=== PATIENT | male | born 1975 | race Caucasian/White ===

== ENCOUNTER → 2016-10-17 | Outpatient (CLI) | payer OTHER ==
[~2016-10-17] MED LIST: ADDERALL15 MG PO; CIPRO500 MG PO; FLAGYL500 MG PO; HYDROCODONE BIT1 T11 PO; OXYCODONE5 MG PO; ULTRAM50 MG PO; VICODIN 5-3001 EACH PO; ZOFRAN ODT4 MG SL; ZYRTEC10 MG PO
== END | disposition home or self-care (01) ==
LOC: RAD 12:16
DX: J40 Bronchitis, not specified as acute or chronic (principal)

== ENCOUNTER 2016-11-24 09:24 | Emergency (ER) | payer OTHER ==
[~2016-11-24] VITALS: Ht 177.8 cm; Wt 115.7 kg
[2016-11-24 09:55] LABS: BASO # 0.1 10*3/uL (0.0-0.1); BASO % 1.2 % (0.0-1.0); EOS # 0.4 10*3/uL (0.0-0.4); EOS % 7.8 % (1.0-4.0); HEMOGLOBIN 15.6 g/dl (14.0-18.0); LYMPH # 2.2 10*3/uL (1.3-4.4); LYMPH % 39.2 % (27.0-41.0); MEAN CELL VOLUME 94.7 fl (80.0-94.0); MEAN CORPUSCULAR HGB 32.1 pg (27.0-31.0); MEAN CORPUSCULAR HGB CONC 33.9 g/dl (33.0-37.0); MEAN PLATELET VOLUME 10.2 fl (9.6-12.3); MONO # 0.6 10*3/uL (0.1-1.0); MONO % 10.1 % (3.0-9.0); NEUT # 2.4 10*3/uL (2.3-7.9); NEUT % 41.5 % (47.0-73.0); PLATELET COUNT AUTOMATED 173 10*3/uL (130-400); RED BLOOD COUNT 4.86 10*6/uL (4.50-5.90); RED CELL DISTRI WIDTH 13.2 % (0-14.5); WHITE BLOOD COUNT 5.7 10*3/uL (4.8-10.8)
[2016-11-24 10:03] LABS: BILIRUBIN NEGATIVE (NEGATIVE); BLOOD NEGATIVE (NEGATIVE); CLARITY CLEAR (CLEAR); COLOR YELLOW (YELLOW); GLUCOSE NEGATIVE (NEGATIVE); KETONE TRACE (NEGATIVE); LEUKO ESTERASE 1+ (NEGATIVE); NITRITE NEGATIVE (NEGATIVE); UROBILINOGEN 0.2 E.U./dl (0.2-1.0)
[2016-11-24 10:13] LABS: ALKALINE PHOSPHATASE 74 U/L (45-117); BUN 15 mg/dl (7-24); CHLORIDE 103 mmol/L (98-107); CREATININE 0.95 mg/dL (0.70-1.30); LIPASE 229 U/L (73-393); POTASSIUM 4.6 mmol/L (3.5-5.1); SGOT/AST 25 IU/L (3-35); SGPT/ALT 37 U/L (12-78); SODIUM 139 mmol/L (136-145); TOTAL PROTEIN 7.6 gm/dL (6.4-8.2)
[2016-11-24] MEDS ORDERED: [UNRECOGNIZED DRUG - OTHER] PO (11:55)
[2016-11-24] MEDS ORDERED: PYRIDIUM200 M1 PO (11:55)
== END 2016-11-24 12:01 | disposition home or self-care (01) ==
LOC: ED 09:24
PROVIDERS: Nurse Practitioner Family
DX: N30.01 Acute cystitis with hematuria (principal); R03.0 Elevated blood-pressure reading, without diagnosis of hypertension; I10 Essential (primary) hypertension; K21.9 Gastro-esophageal reflux disease without esophagitis; Z88.6 Allergy status to analgesic agent

== ENCOUNTER → 2016-11-30 | Outpatient (CLI) | payer OTHER ==
[~2016-11-30] MED LIST changes: +PYRIDIUM200 M1 PO; +[UNRECOGNIZED DRUG - OTHER] PO
== END | disposition home or self-care (01) ==
LOC: RAD 11:13
DX: M54.5 Low back pain (principal); Z90.49 Acquired absence of other specified parts of digestive tract

== ENCOUNTER → 2016-12-14 | Outpatient (CLI) | payer OTHER | LOC: RAD 12:35 | DX: J40 Bronchitis, not specified as acute or chronic (principal) ==

== ENCOUNTER 2017-01-04 09:01 | Emergency (ER) | payer OTHER ==
[~2017-01-04] VITALS: Ht 177.8 cm; Wt 115.7 kg
[2017-01-04 09:46] LABS: BASO % 0.6 % (0.0-1.0); EOS # 0.4 10*3/uL (0.0-0.4); EOS % 5.1 % (1.0-4.0); HEMATOCRIT 43.6 % (42.0-52.0); HEMOGLOBIN 14.8 g/dl (14.0-18.0); LYMPH # 1.3 10*3/uL (1.3-4.4); LYMPH % 18.6 % (27.0-41.0); MEAN CELL VOLUME 93.2 fl (80.0-94.0); MEAN CORPUSCULAR HGB 31.6 pg (27.0-31.0); MEAN CORPUSCULAR HGB CONC 33.9 g/dl (33.0-37.0); MEAN PLATELET VOLUME 10.1 fl (9.6-12.3); MONO % 13.5 % (3.0-9.0); NEUT # 4.4 10*3/uL (2.3-7.9); NEUT % 61.8 % (47.0-73.0); PLATELET COUNT AUTOMATED 172 10*3/uL (130-400); RED BLOOD COUNT 4.68 10*6/uL (4.50-5.90); RED CELL DISTRI WIDTH 12.9 % (0-14.5)
[2017-01-04 10:01] LABS: BILIRUBIN NEGATIVE (NEGATIVE); BLOOD NEGATIVE (NEGATIVE); CLARITY CLEAR (CLEAR); COLOR YELLOW (YELLOW); GLUCOSE NEGATIVE (NEGATIVE); KETONE NEGATIVE (NEGATIVE); LEUKO ESTERASE 1+ (NEGATIVE); NITRITE NEGATIVE (NEGATIVE); PH 6.5 (5.0-9.0); UROBILINOGEN 0.2 E.U./dl (0.2-1.0)
[2017-01-04 10:01] LABS: ALBUMIN 3.9 gm/dl (3.1-4.5); ALKALINE PHOSPHATASE 82 U/L (45-117); BUN 12 mg/dl (7-24); CHLORIDE 101 mmol/L (98-107); POTASSIUM 4.2 mmol/L (3.5-5.1); SGOT/AST 19 IU/L (3-35); SGPT/ALT 33 U/L (12-78); SODIUM 138 mmol/L (136-145); TOTAL PROTEIN 7.5 gm/dL (6.4-8.2)
[2017-01-04 10:12] LABS: TROPONIN I < 0.015 ng/ml (<0.045)
[2017-01-04 10:13] LABS: EPITHELIAL CELLS 0-2
[2017-01-04] MEDS ORDERED: LEVAQUIN750 M1 PO (13:40)
== END 2017-01-04 14:08 | disposition home or self-care (01) ==
LOC: ED 09:01
PROVIDERS: Physician Assistant
DX: J18.9 Pneumonia, unspecified organism (principal); R07.81 Pleurodynia; Z90.49 Acquired absence of other specified parts of digestive tract; Z88.6 Allergy status to analgesic agent

== ENCOUNTER → 2017-10-30 | Outpatient (CLI) | payer OTHER ==
[~2017-10-30] MED LIST changes: +LEVAQUIN750 M1 PO
== END | disposition home or self-care (01) ==
LOC: CT 10-18 13:00
DX: R10.12 Left upper quadrant pain (principal); Z90.49 Acquired absence of other specified parts of digestive tract

== ENCOUNTER → 2017-12-08 | Day surgery (SDC) | payer OTHER ==
[~2017-12-08] VITALS: Ht 177.8 cm; Wt 117.9 kg
--- NOTE | ~2017-12-08 | O ---
[place], [place] OPERATIVE NOTE NAME: [id number] UNIT #: [id number] ROOM: DOCTOR: KIRTI VERDUZCO,FRANCINE BIRTHDATE: [birth year] DOS: 12/08/2017 SUBJECTIVE: The patient is 41 years old, who has presented with chief complaint of abdominal pain and had a CT scan of the abdomen done and it was reported that he has a stent in biliary anatomy, which has migrated to pancreas, which is unlikely. However, this patient has had an ERCP 3-1/2-year-ago with common duct stone and stent placements. He never come back with the excuse of he never had time. ALLERGIES: ULTRAM. FAMILY HISTORY: Noncontributory. PAST SURGICAL HISTORY: Cholecystectomy, ERCP and stent. PAST MEDICAL HISTORY: Hypertension, ADHD, alcohol history, 10 beer a day. SOCIAL HISTORY: Otherwise, nonsmoker. PROCEDURE: Today's procedure part of investigation and therapy is ERCP plus papillotomy, plus snare removal of the migrated stent in common duct and balloon sweep of common duct and removal of sludge and small stones, plus photographic series. PREMEDICATION: Propofol intubation. SCOPE: Olympus side-viewing duodenum scope. REPORT: After putting the patient in the left lateral position and application of lubricant to the scope, the scope was introduced. Thereafter, under direct visualization, advanced through the length of esophagus without difficulty. The gastric pouch was entered. Evidence of gastritis of mild degree seen. Duodenal bulb was entered. Papilla of Vater was defined, but I could not see any stent in the duodenum. Therefore, radiologically a stent was located, which has migrated up into common hepatic radicle. At this stage, guidewire was introduced into the common duct and advanced to the left hepatic radicle and a balloon size 12 was utilized, balloon was negotiated above the tail of the stent in common hepatic duct and gradually the stent was hammered out along with a large volume of small stones and sludge. Photographic series of the event was obtained. Eventually, the head of the stent was exposed into duodenum and after this, the stent was snared and orally extracted. The patient was reintubated another balloon sweep of common bile duct and common hepatic duct was done, larger volume of sludge, which has backed up behind obstructed stent was removed. The patient tolerated the procedure well. IMPRESSION: Migrated biliary stent with obstruction, status post endoscopic retrograde cholangiopancreatography, status post stent removal, status post balloon sweep of common duct for choledocholithiasis, choledochal sludge, status post papillotomy. [place], [place] OPERATIVE NOTE NAME: OSITO BARRIOS UNIT #: [id number] ROOM: DOCTOR: KIRTI VERDUZCO,FRANCINE BIRTHDATE: [birth year] PLAN AND DISCUSSION: Resumption of activity. The patient was advised to abstain from drinking 10 beers a day, and hoping that he would be compliant. He would be following up with you in office and I recommend an LFT to be obtained to assure that his LFTs normalizes. Thank you very much indeed. Photographic series have been attached to chart for future reference. FRANCINE COTTO MD CM:OPRECORD:OPERATIVE NOTE [id number] FRANCINE COTTO MD 12/08/17 1604 interface
[2017-12-08 11:59] VITALS: BP 132/91
[2017-12-08 14:57] VITALS: BP 117/80
[2017-12-08 15:08] VITALS: BP 114/70
[2017-12-08 15:30] VITALS: BP 118/80
[2017-12-08 15:41] VITALS: BP 122/77
[2017-12-08 15:48] VITALS: BP 114/77
== END | disposition home or self-care (01) ==
LOC: SDC 12-05 12:30
DX: T85.520A Displacement of bile duct prosthesis, initial encounter (principal); K29.70 Gastritis, unspecified, without bleeding; K80.50 Calculus of bile duct without cholangitis or cholecystitis without obstruction; I10 Essential (primary) hypertension; K21.9 Gastro-esophageal reflux disease without esophagitis; F41.8 Other specified anxiety disorders; F17.210 Nicotine dependence, cigarettes, uncomplicated; Z98.890 Other specified postprocedural states; Z90.49 Acquired absence of other specified parts of digestive tract; Z88.6 Allergy status to analgesic agent; Y83.8 Other surgical procedures as the cause of abnormal reaction of the patient, or of later complication, without mention of misadventure at the time of the procedure

== ENCOUNTER 2018-08-01 15:48 | Emergency (ER) | payer OTHER ==
[~2018-08-01] VITALS: Ht 177.8 cm; Wt 115.7 kg
[2018-08-01] MEDS ORDERED: MEDROL DOSEPAK4 MG PO (16:45)
[2018-08-01] MEDS ORDERED: AMOXICILLIN500 M2 PO (16:45)
[2018-08-01] MEDS ORDERED: ROBAXIN500 M1 PO (17:09)
== END 2018-08-01 17:12 | disposition home or self-care (01) ==
LOC: ED 15:48
DX: L23.7 Allergic contact dermatitis due to plants, except food (principal); M62.838 Other muscle spasm; M54.2 Cervicalgia; G89.29 Other chronic pain; M54.5 Low back pain; H93.8X2 Other specified disorders of left ear; J34.89 Other specified disorders of nose and nasal sinuses; Z88.6 Allergy status to analgesic agent; Z79.899 Other long term (current) drug therapy

== ENCOUNTER 2020-05-28 18:22 | Emergency (ER) | payer OTHER ==
[~2020-05-28] VITALS: Ht 177.8 cm; Wt 124.7 kg
[~2020-05-28 18:22] MED LIST changes: +AMOXICILLIN500 M2 PO; +MEDROL DOSEPAK4 MG PO; +ROBAXIN500 M1 PO
[2020-05-28 18:55] LABS: BASO % 0.7 % (0.0-1.0); EOS # 0.5 10*3/uL (0.0-0.4); EOS % 10.2 % (1.0-4.0); HEMATOCRIT 43.2 % (42.0-52.0); LYMPH # 1.7 10*3/uL (1.3-4.4); MEAN CELL VOLUME 94.5 fl (80.0-94.0); MEAN CORPUSCULAR HGB 32.2 pg (27.0-31.0); MEAN PLATELET VOLUME 10.6 fl (9.6-12.3); MONO # 0.4 10*3/uL (0.1-1.0); MONO % 9.4 % (3.0-9.0); NEUT # 1.9 10*3/uL (2.3-7.9); NEUT % 42.5 % (47.0-73.0); PLATELET COUNT AUTOMATED 182 10*3/uL (130-400); RED BLOOD COUNT 4.57 10*6/uL (4.50-5.90); RED CELL DISTRI WIDTH 12.4 % (0-14.5); WHITE BLOOD COUNT 4.5 10*3/uL (4.8-10.8)
[2020-05-28 19:11] LABS: INTERNATIONAL NORM RATIO 1.1 (2.0-3.5)
[2020-05-28 19:12] LABS: ALBUMIN 3.6 gm/dl (3.1-4.5); ALKALINE PHOSPHATASE 90 U/L (45-117); BUN 12 mg/dl (7-24); CHLORIDE 104 mmol/L (98-107); CREATININE 0.87 mg/dL (0.70-1.30); SGOT/AST 18 IU/L (3-35); SGPT/ALT 35 U/L (12-78); SODIUM 139 mmol/L (136-145); TOTAL PROTEIN 7.2 gm/dL (6.4-8.2)
[2020-05-28 19:18] LABS: TROPONIN I < 0.015 ng/ml (<0.045)
== END 2020-05-28 20:31 | disposition home or self-care (01) ==
LOC: ED 18:22
PROVIDERS: Physician Assistant
DX: R03.0 Elevated blood-pressure reading, without diagnosis of hypertension (principal); Z90.89 Acquired absence of other organs; Z88.6 Allergy status to analgesic agent